=== PATIENT | female | born 2005 | race Caucasian/White ===

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

== ENCOUNTER 2024-04-14 15:23 | Outpatient (CLI) | payer OTHER, SELFPAY ==
[2024-04-14 16:43] LABS: HCG,Quantitative < 2 mIU/ml (0-5.42)
[2024-04-16 08:21] LABS: Progesterone 0.1 ng/mL (.)
== END 2024-04-14 23:59 | disposition home or self-care (01) ==
LOC: LAB 15:25
PROVIDERS: Visit Provider Obstetrics & Gynecology
DX: Z34.90 Encounter for supervision of normal pregnancy, unspecified, unspecified trimester (principal)
CPT/HCPCS: 84144; 84702

== ENCOUNTER 2024-07-01 16:00 | Emergency (ER) | payer SELFPAY ==
[2024-07-01 17:09] VITALS: BP 121/71; PULSE 94; RESP 18; TEMP 36.8; O2SAT 97; BMI 41.8
[2024-07-01 17:13] LABS: UTC Pregnancy Test, Urine Negative (Negative)
--- NOTE | 2024-07-01 17:25 | ED_ITS ---
Discharge Plan Disposition Patient Disposition: Home, Self-Care Condition: Good Referrals Follow up/Referrals: Provider,Referral, [Primary Care Provider] - See instructions Activity Restrictions/Add. Instructions Additional Instructions/Restrictions: Follow up with your Family Doctor or OBGYN if no improvement or any worsening of symptoms Return if needed Straight to ER if any life threatening symptoms Clinical Impressions Clinical Impression: Encounter for test, result negative Print Language Print Language: Telugu Discharge ED Provider: Mirian Griffin [facility] General Stated complaint: check to see if preg Mode of Arrival: Ambulatory Source of Information: Patient Time Seen by Provider: 07/01/24 17:30 Description of Symptoms (Recalled from Triage Doc. by RN): + HOME PREG TEST, WANTS A BLOOD AND URINE TEST HEENT Symptoms (Recalled from RN notes): No Resp Symptoms (Recalled from RN notes): No Skin Symptoms (Recalled from RN notes): No MS Symptoms (Recalled from RN notes): No Functional Status (Recalled from RN notes): WNL History of Present Illness Provider Complaint: Patient states that she has irregular periods and she took a home test and it was positive States that she wanted to get a urine and blood test to see if she may be Related Data Allergies Allergy/AdvReac Type Severity Reaction Status Date / Time No Known Allergies Allergy Verified 09/30/22 13:47 Worker's Comp Is this a Worker's Comp case?: No [facility] Disclaimer: The information contained in this section may have been updated after the patient was seen, as this information can be updated by other users. Social History Smoking Status: Never smoker alcohol intake: never substance use type: denies use current occupational status: student Travel in the last 8 weeks: Inside the [place] household members: family housing: house ROS Obtained: Yes All systems reviewed & no additional complaints except as documented and Yes Systems reviewed as appropriate & no additional complaints except as documented Constitutional Constitutional: Reports system reviewed and no additional complaints, except as documented and Reports as per HPI ENT Ears, Nose, Mouth, and Throat: Reports system reviewed and no additional complaints, except as documented and Reports as per HPI Cardiovascular Cardiovascular: Reports system reviewed and no additional complaints, except as documented and Reports as per HPI Respiratory Respiratory: Reports system reviewed and no additional complaints, except as documented and Reports as per HPI Gastrointestinal Gastrointestingal: Reports system reviewed and no additional complaints, except as documented and as per HPI Genitourinary Female Genitourinary: Reports system reviewed and no additional complaints, except as documented, Reports as per HPI and Reports other Comments: + home test Physical Exam General General appearance: alert and in no apparent distress Eye Eye exam: Present normal appearance, PERRL and EOMI ENT ENT exam: Present normal exam, normal oropharynx, mucous membranes moist and TM's normal bilaterally Respiratory Respiratory exam: Present normal lung sounds bilaterally; Absent respiratory distress or wheezes Cardiovascular Cardiovascular exam: Present regular rate, normal rhythm and normal heart sounds Neurological Exam Neurological exam: Present alert, oriented X3 and normal gait Medical Decision Making Medical Records Screening: Per USPSTF and CDC recommendations, given the prevalence of disease in our region, it is our hospital?s policy to screen for HIV and viral Hepatitis for all patients aged 18 and over and those with ongoing risk factors. Manan Inquiry Pt receiving controlled substance: No Manan was queried for this patient: No Vital Signs: 07/01/24 17:09 Temperature 98.2 F Temperature Source Oral Pulse Rate [Left Radial] 94 H Respiratory Rate 18 Blood Pressure [Left Arm] 121/71 Blood Pressure Mean [Left Arm] 87 02 Sat by Pulse Oximetry 97 Lab Data Lab results reviewed: Yes I reviewed the patient's lab results. Lab Results 07/01/24 17:01: [facility] Negative Orders (Tests/Meds): ORDERS Category Date Time Status HCG Qualitative, Serum Stat Lab 07/01/24 17:01 Ordered
[2024-07-01 18:19] LABS: HCG Qualitative, Serum Negative (Negative)
[2024-07-01 18:24] VITALS: BP 121/71; PULSE 94; RESP 18; TEMP 36.8
== END 2024-07-01 18:28 | disposition home or self-care (01) ==
PROVIDERS: Emergency Provider Nurse Practitioner
DX: Z32.02 Encounter for pregnancy test, result negative (principal); N92.6 Irregular menstruation, unspecified
CPT/HCPCS: 36415; 81025; 84703; 99212; G0381

== ENCOUNTER 2025-03-22 12:00 | Outpatient (CLI) | payer SELFPAY | END 2025-03-22 23:59 | disposition home or self-care (01) | LOC: LAB.DROPOF 03-23 12:36 | PROVIDERS: PCP Student in an Organized Health Care Education/Training Program; Visit Provider Student in an Organized Health Care Education/Training Program | DX: Z32.01 Encounter for pregnancy test, result positive (principal) | CPT/HCPCS: 84702 ==

== ENCOUNTER 2025-03-23 17:24 | Emergency (ER) | payer SELFPAY ==
[2025-03-23 17:59] VITALS: BP 156/100; PULSE 87; RESP 16; TEMP 36.7; O2SAT 100; BMI 36.3
--- NOTE | 2025-03-23 18:02 | ED_ITS ---
<Statement entered by Salina Rodriguez DO - 03/24/25 21:23> I was consulted by the DEYA, and we discussed the complexity of problems being addressed. I approve the treatment and management plan for this patient's care in the emergency department, thus performing a substantial portion of the medical decision making. Salina Rodriguez DO Discharge Plan Disposition Patient Disposition: Home, Self-Care Condition: Good Prescriptions Prescriptions: New cephalexin 500 mg capsule 500 mg PO BID 7 Days Qty: 14 0RF Referrals Follow up/Referrals: Provider,Referral, MD [Primary Care Provider, Medical] - See instructions Activity Restrictions/Add. Instructions Additional Instructions/Restrictions: You should start taking the antibiotics given the bacteria in your urine and you will need to take them for 7 days. You need to either come back here to the emergency department or go to an OB or your primary care doctor to get repeat labs done in 48 hours to make sure that you are blood levels are appropriately uptrending. Return to the emergency department for any acute or worsening symptoms. Clinical Impressions Clinical Impression: Vaginal bleeding during Instructions Patient Instructions: DI for Acute Abdominal Pain Print Language Print Language: Kyrgyz Discharge ED Provider: Salina Rodriguez General Adult HPI <VAISHALI Monroy - Last Filed: 03/23/25 19:06> General Chief complaint: Abdominal Pain Stated complaint: 6-7 weeks with cramping,bleeding Time Seen by Provider: 03/23/25 17:54 Mode of Arrival: Ambulatory Source of Information: Patient Limitations: No Limitations History of Present Illness HPI narrative: 19-year-old G2, unknown gestational age female presents to the emergency department with a less than 24-hour history of vaginal bleeding that she describes as spotting, with 1 soaked pad, she endorses 3 days of abdominal cramping, she is unsure when her last menstrual cycle is, she states she has quite irregular , menstrual cycles, believes last menstrual cycle was possibly in November, she had positive test on March 21, 2025, had a subsequent positive test yesterday at urgent care treatment facility. She denies any fever chills chest pain shortness of breath, no overt abdominal pain as the cramping is a waxing and waning, vomiting diarrhea constipation, denies any other vaginal discharge, denies any dysuria or other urinary symptomatology, patient has no other real relevant past medical history with the exception of mesenteric adenitis, takes no other medications at home, remote history of possible endometriosis for which she never followed up for, she is a current everyday smoker, (vapes), occasional is alcohol, denies any drug use. Initial triage vitals unremarkable. Of note, after patient's positive test yesterday at urgent care treatment facility, she made appointment with [facility] health provider coming up in March. Please note that above description of symptoms, in this electronic medical record under categorization of recalled from ER triage doctor by RN are reflective of an initial nursing assessment, however, is not reflective of my full history and physical exam that was personally taken and clarified. Consequentially, this preceding description of symptoms, which may include the patient's categorized chief complaint in the EMR, do not reflect my personal clinical impression, and the ultimate description of history of present illness and patient stated complaints should be deferred to this section of the note. Unless stated otherwise or congruent with this section of the note, additional signs, symptoms, or incongruence should be interpreted as inaccurate with my clinical impression. Onset (ago): hour(s) Related Data Previous Rx's ?Medication ?Instructions ?Recorded cephalexin 500 mg capsule 500 mg PO BID 7 days #14 cap s 03/23/25 Allergies Allergy/AdvReac Type Severity Reaction Status Date / Time No Known Allergies Allergy Verified 03/22/25 11:26 [facility] <VAISHALI Monroy - Last Filed: 03/23/25 19:06> [facility] Disclaimer: The information contained in this section may have been updated after the patient was seen, as this information can be updated by other users. Medical History (Updated 03/23/25 @ 20:29 by Salina Rodriguez DO) Possible , not confirmed Social History Smoking Status: Current every day smoker alcohol intake: never substance use type: denies use current occupational status: student Travel in the last 8 weeks?: [place] the [place] household members: family housing: house Have you lived/traveled outside US in past 30 days?: No Contact w/someone who lives/traveled outside US past 30 days?: No Exposure to someone with infectious disease in past 14 days?: No Do you have a fever (greater than 100.4 F or 38 C)?: No Have you tested positive for COVID-19?: No Exposed to someone with COVID-19 in past 14 days?: No Do you have a sore throat?: No Do you have a cough?: No Do you have any weakness?: No Do you have any diarrhea?: No Are you experiencing any unusual bleeding?: No Do you have any muscle aches/pain?: No Do you have any abdominal pain?: No Are you experiencing loss of taste or smell?: No Other Medical History Have you received the Flu Vaccine for this season: No Have you received the Pneumonia Vaccine: No <VAISHALI Monroy - Last Filed: 03/23/25 19:06> ROS Obtained: Yes All systems reviewed & no additional complaints except as documented Physical Exam <VAISHALI Monroy - Last Filed: 03/23/25 19:06> General General appearance: alert and in no apparent distress Comment: Somewhat of a flat affect, mildly tearful appearing Head Head exam: atraumatic and normocephalic Eye Eye exam: Present PERRL and EOMI ENT ENT exam: Present mucous membranes moist Neck Neck exam: Present normal inspection Chest Chest inspection: Present normal inspection and symmetric chest wall rise Respiratory Respiratory exam: Present normal lung sounds bilaterally; Absent respiratory distress Cardiovascular Cardiovascular exam: Present regular rate and normal rhythm Abdominal Exam Abdominal exam: Present soft; Absent tenderness, guarding, rebound or rigidity Extremities Exam Extremities exam: Present normal inspection Neurological Exam Neurological exam: Present alert and oriented X3 Psychiatric Psychiatric exam: Present normal affect Skin Skin exam: Present warm and dry Medical Decision Making <VAISHALI Monroy - Last Filed: 03/23/25 19:06> Medical Records Medical records reviewed: Yes I reviewed the patient's medical records. Screening: Per USPSTF and CDC recommendations, given the prevalence of disease in our region, it is our hospital?s policy to screen for HIV and viral Hepatitis for all patients aged 18 and over and those with ongoing risk factors. Manan Inquiry Pt receiving controlled substance: No Manan was queried for this patient: No Vital Signs: 03/23/25 17:59 03/23/25 18:05 03/23/25 20:36 Temperature 98.1 F 98.0 F 98.0 F Temperature Source Oral Oral Oral Pulse Rate 99 H 85 Pulse Rate [Right Radial] 87 Respiratory Rate 16 18 16 Blood Pressure 124/59 L 117/97 H Blood Pressure [Right Arm] 156/100 H Blood Pressure Mean [Right Arm] 118 Blood Pressure Source Automatic Cuff Blood Pressure Source [Right Arm] Automatic Cuff Blood Pressure Position Sitting Supine Blood Pressure Position [Right Arm] Sitting 02 Sat by Pulse Oximetry 100 100 Oxygen Delivery Method Room Air Room Air Room Air Lab Data Lab results reviewed: Yes I reviewed the patient's lab results. Lab Results 03/23/25 17:51: Urine Color Yellow, Urine Appearance Clear, Urine pH 5.5, Ur Specific [place] >= 1.030, Urine Protein 1+ A, Urine Glucose (UA) Negative, Urine Ketones Trace, Urine Blood 3+ A, Urine Nitrate Negative, Urine Bilirubin 1+ A, Urine Urobilinogen 0.2, Ur Leukocyte Esterase Negative, Urine RBC Occasional, Urine WBC 5-10, Ur Squamous Epith Cells 10-20, Amorphous Sediment 2+, Urine Bacteria 2+ 03/23/25 18:50: WBC 6.3, RBC 3.57 L, Hgb 12.3, Hct 35.2 L, MCV 98.6, MCH 34.5 H, MCHC 34.9, RDW 13.0, Plt Count 223, MPV 11.0 H, Neut % (Auto) 65.6, Lymph % (Auto) 25.6, Roberts % (Auto) 7.8, Eos % (Auto) 0.5, Baso % (Auto) 0.3, Neut # (Auto) 4.1, Lymph # (Auto) 1.6, Roberts # (Auto) 0.5, Eos # (Auto) 0.0, Baso # (Auto) 0.0, PT 10.9, INR 0.98, Sodium 135 L, Potassium 3.6, Chloride 108 H, C arbon Dioxide 18 L, Anion Gap 12.6, BUN 7, Creatinine 0.60, Estimated Creat Clear 227, Estimated GFR 127, Est GFR ( Amer) 154, Glucose 90, Calcium 8.6, Total Bilirubin 0.6, AST 23, ALT 13, Alkaline Phosphatase 67, Total Protein 6.7, Albumin 4.1, Globulin 2.6, Albumin/Globulin Ratio 1.6, HCG, Quant 274 H, HCV Ab SVETA w/Rflx PCR Qn Negative, HIV Ag/Ab Combo Qual Negative 03/23/25 18:50 03/23/25 18:50 Orders (Tests/Meds): ORDERS Category Date Time Status Complete Blood Count Auto Diff Stat Lab 03/23/25 18:50 Completed Comprehensive Metabolic Panel Stat Lab 03/23/25 18:50 Completed HCG,Quantitative Stat Lab 03/23/25 18:50 Completed HIV Combo Stat Lab 03/23/25 18:50 Completed Hepatitis C Ab Qual. W/ RFX Stat Lab 03/23/25 18:50 Completed PT INR [Prothrombin Time INR] Stat Lab 03/23/25 18:50 Completed Urinalysis and Microscopic Stat Lab 03/23/25 17:51 Completed Urine Culture Stat Micro 03/23/25 17:51 Received US OB transvaginal Stat Ultrasound 03/23/25 18:03 Completed Medical Decision Narrative: 19-year-old G2, female unknown gestational age presents to the emergency department with vaginal bleeding, differential diagnosis include but not limited to subchorionic hematoma, ectopic , spontaneous , molar , implantation of bleeding, acute UTI among others. I discussed this patient case with attending physician Dr. Rodriguez at shift change, she will be assuming amended the patient's care/workup, disposition is pending laboratory studies and transvaginal ultrasound findings. Will obtain basic laboratory studies, ABO Rh, transvaginal ultrasound, hCG quant, PT/INR, urinalysis. UA is notable for 1+ proteinuria, trace ketonuria, 3+ hematuria, 1+ bilirubin, negative leukocyte Estrace negative nitrites. Of note, I was notified by nursing staff at approximately 6:38 PM that the patient had a syncopal versus near syncopal event while attempting to have IV insertion/blood draw. Will add EKG. I discussed this patient case with attending physician Dr. Rodriguez at shift change, she will be assuming amended the patient's care/workup, disposition is pending laboratory studies and transvaginal ultrasound findings. <Salina Rodriguez, DO - Last Filed: 03/24/25 21:23> Vital Signs: 03/23/25 17:59 03/23/25 18:05 03/23/25 20:36 Temperature 98.1 F 98.0 F 98.0 F Temperature Source Oral Oral Oral Pulse Rate 99 H 85 Pulse Rate [Right Radial] 87 Respiratory Rate 16 18 16 Blood Pressure 124/59 L 117/97 H Blood Pressure [Right Arm] 156/100 H Blood Pressure Mean [Right Arm] 118 Blood Pressure Source Automatic Cuff Blood Pressure Source [Right Arm] Automatic Cuff Blood Pressure Position Sitting Supine Blood Pressure Position [Right Arm] Sitting 02 Sat by Pulse Oximetry 100 100 Oxygen Delivery Method Room Air Room Air Room Air Lab Data Lab Results 03/23/25 17:51: Urine Color Yellow, Urine Appearance Clear, Urine pH 5.5, Ur Specific [place] >= 1.030, Urine Protein 1+ A, Urine Glucose (UA) Negative, Urine Ketones Trace, Urine Blood 3+ A, Urine Nitrate Negative, Urine Bilirubin 1+ A, Urine Urobilinogen 0.2, Ur Leukocyte Esterase Negative, Urine RBC Occasional, Urine WBC 5-10, Ur Squamous Epith Cells 10-20, Amorphous Sediment 2+, Urine Bacteria 2+ 03/23/25 18:50: WBC 6.3, RBC 3.57 L, Hgb 12.3, Hct 35.2 L, MCV 98.6, MCH 34.5 H, MCHC 34.9, RDW 13.0, Plt Count 223, MPV 11.0 H, Neut % (Auto) 65.6, Lymph % (Auto) 25.6, Roberts % (Auto) 7.8, Eos % (Auto) 0.5, Baso % (Auto) 0.3, Neut # (Auto) 4.1, Lymph # (Auto) 1.6, Roberts # (Auto) 0.5, Eos # (Auto) 0.0, Baso # (Auto) 0.0, PT 10.9, INR 0.98, Sodium 135 L, Potassium 3.6, Chloride 108 H, C arbon Dioxide 18 L, Anion Gap 12.6, BUN 7, Creatinine 0.60, Estimated Creat Clear 227, Estimated GFR 127, Est GFR ( Amer) 154, Glucose 90, Calcium 8.6, Total Bilirubin 0.6, AST 23, ALT 13, Alkaline Phosphatase 67, Total Protein 6.7, Albumin 4.1, Globulin 2.6, Albumin/Globulin Ratio 1.6, HCG, Quant 274 H, HCV Ab SVETA w/Rflx PCR Qn Negative, HIV Ag/Ab Combo Qual Negative Orders (Tests/Meds): ORDERS Category Date Time Status Complete Blood Count Auto Diff Stat Lab 03/23/25 18:50 Completed Comprehensive Metabolic Panel Stat Lab 03/23/25 18:50 Completed HCG,Quantitative Stat Lab 03/23/25 18:50 Completed HIV Combo Stat Lab 03/23/25 18:50 Completed Hepatitis C Ab Qual. W/ RFX Stat Lab 03/23/25 18:50 Completed PT INR [Prothrombin Time INR] Stat Lab 03/23/25 18:50 Completed Urinalysis and Microscopic Stat Lab 03/23/25 17:51 Completed Urine Culture Stat Micro 03/23/25 17:51 Received US OB transvaginal Stat Ultrasound 03/23/25 18:03 Completed Medical Decision Narrative: 19-year-old G2, female unknown gestational age presents to the emergency department with vaginal bleeding, differential diagnosis include but not limited to subchorionic hematoma, ectopic , spontaneous , molar , implantation of bleeding, acute UTI among others. I discussed this patient case with attending physician Dr. Rodriguez at shift change, she will be assuming amended the patient's care/workup, disposition is pending laboratory studies and transvaginal ultrasound findings. Will obtain basic laboratory studies, ABO Rh, transvaginal ultrasound, hCG quant, PT/INR, urinalysis. UA is notable for 1+ proteinuria, trace ketonuria, 3+ hematuria, 1+ bilirubin, negative leukocyte Estrace negative nitrites. Of note, I was notified by nursing staff at approximately 6:38 PM that the patient had a syncopal versus near syncopal event while attempting to have IV insertion/blood draw. Will add EKG. I discussed this patient case with attending physician Dr. Rodriguez at shift change, she will be assuming amended the patient's care/workup, disposition is pending laboratory studies and transvaginal ultrasound findings. Salina Rodriguez, I assumed care of the patient at 2200 EKG showed normal sinus rhythm without acute ST or T wave changes concerning for ischemia Patient CBC showed no leukocytosis, hemoglobin was stable. CMP was unremarkable. INR was normal. Beta-hCG 274. Transvaginal ultrasound was performed that showed a cystic structure within the uterus possible early . Patient was sent with Keflex with concern for her UTI. No concern for ectopic at this time. Patient has a follow-up with OB tomorrow for repeat blood work. I recommended that patient get repeat blood work done in 48 hours to make sure that her beta-hCG is appropriately increasing. Patient without any significant bleeding at this time, patient was given bleeding precautions. Patient was otherwise discharged home in stable condition. Critical Care <VAISHALI Monroy - Last Filed: 03/23/25 19:06> Critical Care Time Critical Care Time: No
--- NOTE | 2025-03-23 18:03 | US_ITS ---
PROCEDURE INFORMATION: Exam: US , Transvaginal Exam date and time: 03/23/2025 6:49 PM Age: 19 years old Clinical indication: Lmp or gestational age (in weeks): 4w6d; Other: Bleeding; ; Additional info: R/O ectopic 1st tri vag bleeding TECHNIQUE: Imaging protocol: Real-time transvaginal obstetrical ultrasound of the maternal pelvis with image documentation. Transvaginal imaging was used for better evaluation of the fetus, adnexa, and/or cervix. COMPARISON: CT ABDOMEN PELVIS WO CON 09/30/2022 2:16 PM FINDINGS: Gestation: Possible Intrauterine gestation. BIOMETRY: Gestational age (AUA): 4 w 6 d Estimated due date (AUA): 11/24/2025 Mean sac diameter: 0.38 cm. MATERNAL: Right ovary/adnexa: Right ovary measures 2.91 cm x 1.81 cm x 1.79 cm. Right ovarian volume is 4.94 mL. Left ovary/adnexa: Left ovary measures 2.61 cm x 2.06 cm x 2.95 cm. Left ovarian volume is 8.3 mL. IMPRESSION: 1. Cystic structure within the uterus most likely a very early intrauterine although not confirmed. Correlate with serial beta HCG and short-term follow-up pelvic ultrasound. Too early to visualize pole or yolk sac. 2. Unremarkable sonographic appearance to the adnexa.
[2025-03-23 18:05] VITALS: BP 124/59; PULSE 99; RESP 18; TEMP 36.7; O2SAT 100
[2025-03-23 18:14] LABS: Microscopic, Urine URINE MICROSCOPIC (MICROSCOPIC)
[2025-03-23 18:16] LABS: Color,Urine YELLOW (Yellow); Glucose,Urine (UA) Negative (Negative); Ketones,Urine TRACE (Negative); Leukocyte Esterase,Urine Negative (Negative); PH,Urine 5.5 (5.0-8.5); Protein,Urine 1+ (Negative); Specific Gravity, Urine >= 1.030 (1.005-1.030); Urobilinogen,Urine 0.2 EU/dl (0.2)
[2025-03-23 18:25] LABS: Bilirubin,Urine 1+ (Negative)
--- NOTE | 2025-03-23 18:47 | ECG_ITS ---
APPROVED REPORT Exam: Resting ECG HR:76 bpm ECG Measurements Heart Rate 76 AXES MD 136 P 37 QRSd 90 QRS 46 QT 372 T 10 QTc 403 Conclusion SINUS RHYTHM NONSPECIFIC T-WAVE ABNORMALITY BORDERLINE ECG UNCONFIRMED REPORT Electronically signed by : TAYLA COOLEY, 03/23/2025 23:16:25
[2025-03-23 19:04] LABS: Amorphous Sediment,Urine 2+ /lpf; Bacteria,Urine 2+ /lpf; RBC,Urine Occasional #/hpf (0-3)
[2025-03-23 19:14] LABS: Hematocrit 35.2 % (37.0-47.0); Hemoglobin 12.3 g/dL (12.2-16.2); Immature Granulocytes % 0.2 %; Mean Corpuscular HGB Conc 34.9 g/dL (31.8-35.4); Mean Corpuscular Hemoglobin 34.5 pg (27.0-31.2); Mean Corpuscular Volume 98.6 fl (81-99); Nucleated Red Blood Cells % 0 %; Platelet Count 223 K/mm3 (142-424); Red Blood Count 3.57 M/mm3 (4.20-5.40); Red Cell Distribution Width-SD 46.8 fL; White Blood Count 6.3 K/mm3 (4.5-13.0)
[2025-03-23 19:24] LABS: INR 0.98 (0.9-1.1); Prothrombin Time 10.9 seconds (10.1-12.5)
[2025-03-23 19:43] LABS: Alanine Aminotransferase 13 U/L (12-78); Albumin Level 4.1 g/dl (3.5-5.0); Albumin/Globulin Ratio 1.6 (1.1-1.8); Alkaline Phosphatase 67 U/L (38-126); Anion Gap 12.6 mEq/L (5-15); Aspartate Amino Transferase 23 U/L (14-36); Bilirubin,Total 0.6 mg/dl (0.2-1.3); Blood Urea Nitrogen 7 mg/dl (7-17); Calcium 8.6 mg/dl (8.4-10.2); Carbon Dioxide 18 mmol/L (22.0-30.0); Chloride 108 mmol/L (98-107); Creatinine Clearance Estimated 227 mL/min (50-200); Creatinine,Serum 0.60 mg/dl (0.52-1.04); Estimated Glomerular Filt Rate 127 ml/min (>60); GFR (African American) 154 ML/MIN (>60); Globulin 2.6 g/dL (1.3-3.2); Glucose 90 mg/dl (74-100); Potassium 3.6 mmoL/L (3.5-5.1); Sodium 135 mmol/L (136-145); Total Protein,Serum 6.7 g/dl (6.3-8.2)
[2025-03-23 20:19] LABS: Hepatitis C Ab Qual. W/ RFX NEGATIVE (Negative)
[2025-03-23 20:36] VITALS: BP 117/97; PULSE 85; RESP 16; TEMP 36.7; O2SAT 100
== END 2025-03-23 20:37 | disposition home or self-care (01) ==
PROVIDERS: Physician Assistant; Emergency Provider Student in an Organized Health Care Education/Training Program
DX: O26.891 Other specified pregnancy related conditions, first trimester (principal); R10.84 Generalized abdominal pain; Z3A.12 12 weeks gestation of pregnancy
CPT/HCPCS: 36415; 76817; 80053; 81001; 84702; 85025; 85610; 86803; 87086; 87389; 93005; 99284

== ENCOUNTER 2025-03-24 08:08 | Outpatient (CLI) | payer SELFPAY | END 2025-03-24 23:59 | disposition home or self-care (01) | LOC: LAB 08:10 | PROVIDERS: Visit Provider Obstetrics & Gynecology | DX: N92.6 Irregular menstruation, unspecified (principal); Z34.90 Encounter for supervision of normal pregnancy, unspecified, unspecified trimester | CPT/HCPCS: 36415; 84144; 84702 ==

== ENCOUNTER 2025-03-25 10:35 | Emergency (ER) | payer SELFPAY ==
[2025-03-25 10:47] VITALS: BP 105/73; PULSE 84; RESP 16; TEMP 36.6; O2SAT 99; BMI 36.3
--- NOTE | 2025-03-25 10:58 | US_ITS ---
PROCEDURE INFORMATION: Exam: US , Transvaginal Exam date and time: 03/25/2025 11:06 AM Age: 19 years old Clinical indication: Lmp or gestational age (in weeks): 5weeks; Other: Vaginal bleeding; ; Additional info: 5wk , worsening vaginal bleeding TECHNIQUE: Imaging protocol: Real-time transvaginal obstetrical ultrasound of the maternal pelvis with image documentation. Transvaginal imaging was used for better evaluation of the fetus, adnexa, and/or cervix. COMPARISON: US OB TRANSVAGINAL 03/23/2025 6:49 PM FINDINGS: Gestation: No intrauterine is appreciated. MATERNAL: Uterus: Trilaminar endometrium is noted. Right ovary/adnexa: There is and 11 mm cystic structure in the right adnexa with surrounding increased vascularity. Intraperitoneal space: There is free fluid in the cul-de-sac and adnexal regions. IMPRESSION: No intrauterine is appreciated. Trilaminar endometrium measuring 8 mm. There is a small endometrial cyst measuring 2 mm. 11 mm cystic lesion in the right adnexa with surrounding increased flow. There is free fluid within the adnexa and cul-de-sac. Correlation with patient's beta HCG is recommended to exclude ectopic.
--- NOTE | 2025-03-25 10:59 | ED_ITS ---
Discharge Plan Disposition Patient Disposition: Home, Self-Care Prescriptions Prescriptions: No Action cephalexin 500 mg capsule 500 mg PO BID 7 Days Qty: 14 0RF Referrals Follow up/Referrals: Provider,Referral, MD [Primary Care Provider, Medical] - See instructions Activity Restrictions/Add. Instructions Additional Instructions/Restrictions: Follow-up with the OB office as they schedule you. You will likely continue to have some bleeding over the next few days. If you develop any new or worsening symptoms, such as fever, uncontrolled abdominal pain, or if you become concerned for your health for any reason, return to the emergency department for evaluation. Clinical Impressions Clinical Impression: Miscarriage Print Language Print Language: Sinhala Discharge ED Provider: Clayton Ruby General Adult HPI General Chief complaint: Vaginal Bleeding Stated complaint: 5 weeks /actively bleeding Time Seen by Provider: 03/25/25 10:45 Mode of Arrival: Ambulatory Source of Information: Patient Description of Symptoms (Recalled from ER Triage Doc. by RN): Patient reports being here Sunday for vaginal bleeding after a positive test. States that if she continued to have bleeding that she was instructed to come back for a vaginal ultrasound and recheck of her HCG levels. States that when she got up this morning she had some spotting and then felt a gush and when she checked her underwear it was completely soaked in blood. Denies any clots or pain at this time. History of Present Illness HPI narrative: ,Kvng Martinez is a 19y female with a history of previous miscarriage regular periods who presents to the emergency department for complaints of vaginal bleeding in the setting of being approximately 5 weeks 1 day . Patient states that 4 days ago, she started having vaginal spotting that she thought was implantation bleeding. She states that she was evaluated in the emergency department on the and her beta-hCG's have been uptrending since then. She did have a vaginal ultrasound there that showed a gestational sac but could not see any fetus. She states that she woke up this morning and had a large amount of blood between her legs. She reports some mild abdominal cramping. She was told on the that she needs to come back to the emergency department today for recheck of her lab work and repeat ultrasound. Related Data Previous Rx's ?Medication ?Instructions ?Recorded cephalexin 500 mg capsule 500 mg PO BID 7 days #14 cap s 03/23/25 Allergies Allergy/AdvReac Type Severity Reaction Status Date / Time No Known Allergies Allergy Verified 03/22/25 11:26 [facility] Disclaimer: The information contained in this section may have been updated after the patient was seen, as this information can be updated by other users. Medical History (Updated 03/25/25 @ 14:12 by Clayton Ruby MD) Possible , not confirmed Social History Smoking Status: Current every day smoker alcohol intake: never substance use type: denies use current occupational status: student Travel in the last 8 weeks?: Inside the [place] household members: family housing: house Have you lived/traveled outside US in past 30 days?: No Contact w/someone who lives/traveled outside US past 30 days?: No Exposure to someone with infectious disease in past 14 days?: No Do you have a fever (greater than 100.4 F or 38 C)?: No Have you tested positive for COVID-19?: No Exposed to someone with COVID-19 in past 14 days?: No Do you have a sore throat?: No Do you have a cough?: No Do you have any weakness?: No Do you have any diarrhea?: No Are you experiencing any unusual bleeding?: Yes Do you have any muscle aches/pain?: No Do you have any abdominal pain?: Yes Are you experiencing loss of taste or smell?: No Other Medical History Have you received the Flu Vaccine for this season: No Have you received the Pneumonia Vaccine: No ROS Obtained: Yes Systems reviewed as appropriate & no additional complaints except as documented Physical Exam General General appearance: alert and in no apparent distress Head Head exam: atraumatic Eye Eye exam: Present normal appearance ENT ENT exam: Present normal external ear exam Neck Neck exam: Present full ROM Chest Chest inspection: Present symmetric chest wall rise Respiratory Respiratory exam: Present normal lung sounds bilaterally; Absent respiratory distress Cardiovascular Cardiovascular exam: Present regular rate and normal rhythm Abdominal Exam Abdominal exam: Present soft; Absent tenderness or guarding Extremities Exam Extremities exam: Present normal inspection Back Exam Back exam: Present normal inspection Neurological Exam Neurological exam: Present alert and oriented X3 Psychiatric Psychiatric exam: Present normal affect Skin Skin exam: Present warm and dry Medical Decision Making Medical Records Screening: Per USPSTF and CDC recommendations, given the prevalence of disease in our region, it is our hospital?s policy to screen for HIV and viral Hepatitis for all patients aged 18 and over and those with ongoing risk factors. Manan Inquiry Pt receiving controlled substance: No Vital Signs: 03/25/25 10:47 03/25/25 12:58 Temperature 97.8 F Temperature Source Oral Pulse Rate 78 Pulse Rate [Radial] 84 Respiratory Rate 16 Blood Pressure 128/79 Blood Pressure [Right Arm] 105/73 L Blood Pressure Mean [Right Arm] 83 Blood Pressure Source [Right Arm] Automatic Cuff Blood Pressure Position [Right Arm] Sitting 02 Sat by Pulse Oximetry 99 99 Oxygen Delivery Method Room Air Lab Data Lab Results 03/25/25 11:11: WBC 5.2, RBC 3.62 L, Hgb 12.5, Hct 35.8 L, MCV 98.9, MCH 34.5 H, MCHC 34.9, RDW 13.0, Plt Count 173, MPV 11.2 H, Neut % (Auto) 62.1, Lymph % (Auto) 29.4, [place] % (Auto) 7.1, Eos % (Auto) 0.8, Baso % (Auto) 0.4, Neut # (Auto) 3.2, Lymph # (Auto) 1.5, [place] # (Auto) 0.4, Eos # (Auto) 0.0, Baso # (Auto) 0.0 03/25/25 12:00: PT 11.3, INR 1.02, APTT 21.1 L, Sodium 137, Potassium 4.0, C hloride 110 H, Carbon Dioxide 20 L, Anion Gap 11.0, BUN 8, Creatinine 0.50 L, Estimated Creat Clear 272, Estimated GFR 157, Est GFR ( Amer) 190 D, Glucose 96, Calcium 9.2, Total Bilirubin 0.8, AST 23, ALT 11 L, Alkaline Phosphatase 62, Total Protein 7.1, Albumin 4.2, Globulin 2.9, Albumin/Globulin Ratio 1.4, HCG, Quant 205 H 03/25/25 12:52: Blood Type O Positive, Antibody Screen Negative 03/25/25 11:11 03/25/25 12:00 Orders (Tests/Meds): ORDERS Category Date Time Status Type and Screen Stat BBK 03/25/25 12:52 Completed CBC w/Auto Diff [Complete Blood Count Auto Diff] Stat Lab 03/25/25 11:11 Completed CMP [Comprehensive Metabolic Panel] Stat Lab 03/25/25 12:00 Completed HCG,Quantitative Stat Lab 03/25/25 12:00 Completed PT INR [Prothrombin Time INR] Stat Lab 03/25/25 12:00 Completed PTT [Activated Partial Thrombo Time] Stat Lab 03/25/25 12:00 Completed US OB transvaginal Stat Ultrasound 03/25/25 10:58 Completed Medical Decision Narrative: ,Kvng Martinez is a 19y female with a history of previous miscarriage regular periods who presents to the emergency department for complaints of vaginal bleeding in the setting of being approximately 5 weeks 1 day . Patient states that 4 days ago, she started having vaginal spotting that she thought was implantation bleeding. She states that she was evaluated in the emergency department on the and her beta-hCG's have been uptrending since then. She did have a vaginal ultrasound there that showed a gestational sac but could not see any fetus. She states that she woke up this morning and had a large amount of blood between her legs. She reports some mild abdominal cramping. She was told on the that she needs to come back to the emergency department today for recheck of her lab work and repeat ultrasound. On arrival, patient is hemodynamically stable, in no acute respiratory distress, breathing comfortably on room air. Afebrile. Physical exam, stated above, reveals an overall well- appearing female in no distress. GCS 15. She reports some abdominal discomfort but has no tenderness on my exam. Cardiopulmonary exam is unremarkable. Demential diagnosis includes, but is not limited to: Ruptured ectopic , miscarriage, inevitable , ruptured ovarian cyst, among others. The most morbid conditions were considered and workup was based on these. Workup in the emergency department included: CBC, CMP, PT/INR, APTT, quantitative beta-hCG, transvaginal ultrasound Laboratory workup showed no anemia, no leukocytosis, coagulation studies unremarkable. CMP grossly unremarkable nonactionable. Beta-hCG is trending downward and is 205 today and was 326 yesterday and was 274 the day before. Patient's ultrasound from 03/23/2025 was reviewed by me personally. There is a cystic structure within the uterus that could represent a gestational sac, however unable to determine given very early . Transvaginal ultrasound today shows no intrauterine and only a 2 mm endometrial cyst. There is an 11 mm cyst in the right adnexa with surrounding increased flow and free fluid within the adnexa and cul-de-sac. They recommended correlation with patient's beta-hCG to exclude ectopic. Although patient's beta-hCG is downtrending, I did discuss patient's case with Dr. Jones who felt patient's picture fits more consistently with miscarriage and less likely to be ectopic . She did state that she will come down and evaluate the patient and likely arrange close follow-up for her. I discussed this plan with the patient. Dr. Jones evaluated the patient and felt that she was appropriate for discharge at this time with plan for outpatient follow-up. Patient was agreeable with this plan. Patient was given return precautions. She was then discharged from the emergency department in stable condition. Critical Care Critical Care Time Critical Care Time: No
[2025-03-25 11:20] LABS: Hematocrit 35.8 % (37.0-47.0); Hemoglobin 12.5 g/dL (12.2-16.2); Immature Granulocytes % 0.2 %; Mean Corpuscular HGB Conc 34.9 g/dL (31.8-35.4); Mean Corpuscular Hemoglobin 34.5 pg (27.0-31.2); Mean Corpuscular Volume 98.9 fl (81-99); Nucleated Red Blood Cells % 0 %; Platelet Count 173 K/mm3 (142-424); Red Blood Count 3.62 M/mm3 (4.20-5.40); Red Cell Distribution Width-SD 46.7 fL; White Blood Count 5.2 K/mm3 (4.5-13.0)
[2025-03-25 12:38] LABS: Activated Partial Thrombo Time 21.1 seconds (22.8-30.6); INR 1.02 (0.9-1.1); Prothrombin Time 11.3 seconds (10.1-12.5)
[2025-03-25 12:58] VITALS: BP 128/79; PULSE 78; O2SAT 99
[2025-03-25 13:04] LABS: Chloride 110 mmol/L (98-107)
[2025-03-25 13:05] LABS: Albumin Level 4.2 g/dl (3.5-5.0); Potassium 4.0 mmoL/L (3.5-5.1); Sodium 137 mmol/L (136-145)
[2025-03-25 13:07] LABS: Alanine Aminotransferase 11 U/L (12-78); Anion Gap 11.0 mEq/L (5-15); Aspartate Amino Transferase 23 U/L (14-36); Blood Urea Nitrogen 8 mg/dl (7-17); Carbon Dioxide 20 mmol/L (22.0-30.0); Creatinine Clearance Estimated 272 mL/min (50-200); Creatinine,Serum 0.50 mg/dl (0.52-1.04); Estimated Glomerular Filt Rate 157 ml/min (>60); GFR (African American) 190 ML/MIN (>60)
[2025-03-25 13:08] LABS: Albumin/Globulin Ratio 1.4 (1.1-1.8); Alkaline Phosphatase 62 U/L (38-126); Bilirubin,Total 0.8 mg/dl (0.2-1.3); Calcium 9.2 mg/dl (8.4-10.2); Globulin 2.9 g/dL (1.3-3.2); Glucose 96 mg/dl (74-100); Total Protein,Serum 7.1 g/dl (6.3-8.2)
--- NOTE | 2025-03-25 13:30 | PC.NURSE ---
chao daame on phone with it communications specialist obgyn
--- NOTE | 2025-03-25 13:31 | PC.NURSE ---
Dr. Ruby speaking with OB auto inspection specialist.
--- NOTE | 2025-03-25 14:16 | PC.NURSE ---
Per OB office, Dr. Jones is on her way to speak w/ pt.
--- NOTE | 2025-03-25 14:21 | PC.NURSE ---
dr infante at bedside
[2025-03-25 14:38] VITALS: BP 120/83; PULSE 76; RESP 16; TEMP 36.6; O2SAT 98
== END 2025-03-25 14:39 | disposition home or self-care (01) ==
PROVIDERS: Emergency Provider Student in an Organized Health Care Education/Training Program
DX: O03.9 Complete or unspecified spontaneous abortion without complication (principal); R10.819 Abdominal tenderness, unspecified site
CPT/HCPCS: 76817; 80053; 84702; 85025; 85610; 85730; 86850; 99283; 99284

== ENCOUNTER 2025-04-29 11:34 | Outpatient (CLI) | payer SELFPAY | END 2025-04-29 23:59 | disposition home or self-care (01) | LOC: LAB 11:35 | PROVIDERS: Visit Provider Obstetrics & Gynecology | DX: N91.2 Amenorrhea, unspecified (principal); Z32.01 Encounter for pregnancy test, result positive | CPT/HCPCS: 36415; 84144; 84702 ==

== ENCOUNTER 2025-05-01 14:11 | Outpatient (CLI) | payer SELFPAY | END 2025-05-01 23:59 | disposition home or self-care (01) | LOC: LAB 14:11 | PROVIDERS: Visit Provider Obstetrics & Gynecology | DX: Z34.90 Encounter for supervision of normal pregnancy, unspecified, unspecified trimester (principal); Z3A.00 Weeks of gestation of pregnancy not specified | CPT/HCPCS: 36415; 84702 ==

== ENCOUNTER 2025-05-29 09:49 | Outpatient (CLI) | payer OTHER, SELFPAY ==
[2025-05-29 10:12] LABS: Hematocrit 40.6 % (37.0-47.0); Hemoglobin 13.8 g/dL (12.2-16.2); Immature Granulocytes % 0.1 %; Mean Corpuscular HGB Conc 34.0 g/dL (31.8-35.4); Mean Corpuscular Hemoglobin 32.8 pg (27.0-31.2); Mean Corpuscular Volume 96.4 fl (81-99); Nucleated Red Blood Cells % 0 %; Platelet Count 252 K/mm3 (142-424); Red Blood Count 4.21 M/mm3 (4.20-5.40); Red Cell Distribution Width-SD 43.0 fL; White Blood Count 7.8 K/mm3 (4.8-10.8)
[2025-05-29 13:39] LABS: RPR W/RFX Titers Nonreactive (Nonreactive)
[2025-05-29 14:46] LABS: Hepatitis C Ab Qual. W/ RFX NEGATIVE (Negative)
[2025-05-30 08:25] LABS: Hepatitis B Surface Antigen Negative (Negative); Rubella Antibodies, IgG 6.47 index (Immune >0.99)
== END 2025-05-29 23:59 | disposition home or self-care (01) ==
PROVIDERS: Visit Provider Obstetrics & Gynecology
DX: Z34.81 Encounter for supervision of other normal pregnancy, first trimester (principal)
CPT/HCPCS: 36415; 85025; 86592; 86762; 86787; 86803; 86850; 87340; 87389

== ENCOUNTER 2025-07-05 21:21 | Emergency (ER) | payer OTHER, SELFPAY ==
[2025-07-05 21:33] VITALS: BP 126/80; PULSE 97; RESP 18; TEMP 37.2; O2SAT 99; BMI 37.9
--- NOTE | 2025-07-05 22:03 | [facility].EDGENADL ---
Discharge Plan Disposition Patient Disposition: Home, Self-Care Prescriptions Prescriptions: New ondansetron 4 mg tablet,disintegrating 4 mg PO Q6H PRN (Reason: nausea and vomiting) 4 Days Qty: 20 0RF No Action Classic 28 mg iron- 800 mcg tablet 1 tab PO DAILY promethazine 12.5 mg tablet 12.5 mg PO Q6H Qty: 30 3RF progesterone micronized [Prometrium] 200 mg capsule 200 mg vaginal QHS 30 Days Qty: 30 2RF aspirin [Adult Low Dose Aspirin] 81 mg tablet,delayed release (DR/EC) 81 mg PO DAILY Qty: 60 4RF Referrals Follow up/Referrals: Provider,Referral, MD [Primary Care Provider, Medical] - See instructions Activity Restrictions/Add. Instructions Additional Instructions/Restrictions: You have been seen and evaluated the emergency department. Please follow-up with your [employer], we recommend you call tomorrow. You may take Zofran as needed for nausea. Do not combine this medication with promethazine. Continue vitamins at home. You may take Tylenol as needed for abdominal pain. Clinical Impressions Clinical Impression: Abdominal pain Qualifiers: Abdominal location: lower abdomen, unspecified Qualified Code(s): R10.30 - Lower abdominal pain, unspecified Qualifiers: Weeks of gestation: 13 weeks Qualified Code(s): Z3A.13 - 13 weeks gestation of Instructions Patient Instructions: DI for Acute Abdominal Pain Print Language Print Language: Armenian Discharge ED Provider: Amparo Chau Adult HPI General Chief complaint: Abdominal Pain Stated complaint: 13 weeks AP, cramping and vomiting Time Seen by Provider: 07/05/25 21:59 Mode of Arrival: Ambulatory Source of Information: Patient Description of Symptoms (Recalled from ER Triage Doc. by RN): PT presents with severe abdominal cramping and N/V as well as a headache. Pt is 13.5 weeks History of Present Illness HPI narrative: 20-year-old female currently 13 weeks with history of 1 prior miscarriage who presents emergency department with abdominal pain, cramping, nausea, and vomiting. Denies any recent fever, chest pain, shortness of breath, vaginal bleeding, dysuria, or diarrhea. She has tried previously prescribed nausea medication at home without relief. She is currently established with an [employer] and receives care. Currently taking vitamins. Next OB appointment is a few days before [place]. Related Data Home Medications ?Medication ?Instructions ?Recorded ?Confirmed vits no.126-ferrous fum 1 tab PO DAILY 05/20/25 06/23/25 28 mg iron-folic acid 800 mcg tablet (Classic ) Previous Rx's ?Medication ?Instructions ?Recorded progesterone micronized 200 mg 200 mg vaginal QHS 30 days #30 caps 04/30/25 capsule (Prometrium) promethazine 12.5 mg tablet 12.5 mg PO Q6H #30 tabs 05/20/25 aspirin 81 mg tablet,delayed 81 mg PO DAILY #60 tabs 06/28/25 release (Adult Low Dose Aspirin) ondansetron 4 mg disintegrating 4 mg PO Q6H PRN nausea and 07/05/25 tablet vomiting 4 days #20 tabs Allergies Allergy/AdvReac Type Severity Reaction Status Date / Time No Known Allergies Allergy Verified 06/23/25 10:54 [facility] Disclaimer: The information contained in this section may have been updated after the patient was seen, as this information can be updated by other users. Medical History Encounter for supervision of other normal , first trimester Strep throat Possible , not confirmed Surgical History No history of previous surgery Social History Smoking Status: Former smoker alcohol intake: never substance use type: denies use current occupational status: student Travel in the last 8 weeks?: Inside the [place] household members: family housing: house Have you lived/traveled outside US in past 30 days?: No Contact w/someone who lives/traveled outside US past 30 days?: No Exposure to someone with infectious disease in past 14 days?: No Do you have a fever (greater than 100.4 F or 38 C)?: No Have you tested positive for COVID-19?: No Exposed to someone with COVID-19 in past 14 days?: No Do you have a sore throat?: No Do you have a cough?: No Do you have any weakness?: No Do you have any diarrhea?: No Are you experiencing any unusual bleeding?: Yes Do you have any muscle aches/pain?: No Do you have any abdominal pain?: No Are you experiencing loss of taste or smell?: No Other Medical History Have you received the Flu Vaccine for this season: No Have you received the Pneumonia Vaccine: No ROS Obtained: Yes All systems reviewed & no additional complaints except as documented Physical Exam General General appearance: alert and in no apparent distress Head Head exam: atraumatic Eye Eye exam: Present normal appearance, PERRL and EOMI ENT ENT exam: Present mucous membranes moist Neck Neck exam: Present normal inspection and full ROM; Absent tenderness Chest Chest inspection: Present symmetric chest wall rise; Absent tenderness Respiratory Respiratory exam: Absent respiratory distress, wheezes or accessory muscle use Cardiovascular Cardiovascular exam: Present regular rate and normal rhythm Abdominal Exam Abdominal exam: Present soft and tenderness (Very mild suprapubic discomfort/tenderness); Absent distention or guarding Extremities Exam Extremities exam: Present full ROM; Absent tenderness Neurological Exam Neurological exam: Present alert and oriented X3 Psychiatric Psychiatric exam: Present normal affect Skin Skin exam: Present warm and dry Medical Decision Making Medical Records Screening: Per USPSTF and CDC recommendations, given the prevalence of disease in our region, it is our hospital?s policy to screen for HIV and viral Hepatitis for all patients aged 18 and over and those with ongoing risk factors. Manan Inquiry Pt receiving controlled substance: No Manan was queried for this patient: No Vital Signs: 07/05/25 21:33 07/05/25 23:12 Temperature 99.0 F 98.9 F Temperature Source Oral Pulse Rate 86 Pulse Rate [Right] 97 H Respiratory Rate 18 18 Blood Pressure 126/80 Blood Pressure [Right Arm] 126/80 Blood Pressure Mean [Right Arm] 95 Blood Pressure Source [Right Arm] Automatic Cuff Blood Pressure Position [Right Arm] Sitting 02 Sat by Pulse Oximetry 99 Oxygen Delivery Method Room Air Room Air Lab Data Lab Results 07/05/25 21:45: Urine Color Yellow, Urine Appearance Clear, Urine pH 6.0, Ur Specific [place] 1.025, Urine Protein Negative, Urine Glucose (UA) Negative, Urine Ketones 3+, Urine Blood Negative, Urine Nitrate Negative, Urine Bilirubin Negative, Urine Urobilinogen 1.0, Ur Leukocyte Esterase Trace, Urine RBC None, Urine WBC Occasional, Ur Squamous Epith Cells 5-10, Calcium Oxalate Crystal Trace, Urine Bacteria 2+ 07/05/25 22:03: WBC 4.4 L, RBC 3.57 L, Hgb 12.0 L, Hct 33.3 L, MCV 93.3, MCH 33.6 H, MCHC 36.0 H, RDW 12.5, Plt Count 143, MPV 11.0 H, Neut % (Auto) 78.5, Lymph % (Auto) 14.2, [place] % (Auto) 6.1, Eos % (Auto) 0.5, Baso % (Auto) 0.2, Neut # (Auto) 3.5, Lymph # (Auto) 0.6 L, [place] # (Auto) 0.3, Eos # (Auto) 0.0, Baso # (Auto) 0.0, Sodium 136, Potassium 3.8, Chloride 106, Carbon Dioxide 18 L, Anion Gap 15.8 H, BUN 5 L, Creatinine 0.40 L, Estimated Creat Clear 352 H, Estimated GFR 201, Est GFR ( Amer) 244, Glucose 84, Calcium 8.5, Total Bilirubin 0.9, AST 26, ALT 16, Alkaline Phosphatase 36 L, Total Protein 7.1, Albumin 3.9, Globulin 3.2, Albumin/Globulin Ratio 1.2 07/05/25 22:03 07/05/25 22:03 Orders (Tests/Meds): ED MEDICATIONS Discontinued Medications Generic Name Dose Route Start Last Admin Trade Name Devendraq PRN Reason Stop Dose Admin Acetaminophen 1,000 mg 07/05/25 22:03 07/05/25 22:20 Acetaminophen 1,000mg/100ml Vial IV 07/05/25 22:04 1,000 mg ONCE ONE Administration Ondansetron HCl 4 mg 07/05/25 22:03 07/05/25 22:20 Ondansetron 4mg/2ml Vial IV 07/05/25 22:04 4 mg ONCE ONE Administration ORDERS Category Date Time Status POCUS Point of Care (ER Only) Stat Exams 07/05/25 21:59 Completed CBC w/Auto Diff [Complete Blood Count Auto Diff] Stat Lab 07/05/25 22:03 Completed CMP [Comprehensive Metabolic Panel] Stat Lab 07/05/25 22:03 Results HCG,Quantitative Stat Lab 07/05/25 22:03 Results UA [Urinalysis and Microscopic] Stat Lab 07/05/25 21:45 Completed Urine Culture Stat Micro 07/05/25 21:45 Received Medical Decision Narrative: In summary, this is a 20y/o female presenting the emergency department for lower abdominal pain, nausea, and vomiting. She is currently 13 weeks and is established with [employer]. Differential diagnosis includes but is not limited to: First trimester hyperemesis gravidarum, SERGIO, electrolyte abnormality, UTI On my initial assessment, the patient is hemodynamically stable in no acute distress. Physical exam is notable for suprapubic discomfort, however the patient by no means has an acute abdomen. She overall appears well-hydrated. Bedside [id number] ultrasound reveals an intrauterine . There is significant motion of the fetus, I attempted multiple times to capture a heart rate, however was unsuccessful. There is a brisk heartbeat visually present. No obvious pelvic free fluid. Patient received Tylenol and Zofran for treatment. Labs personally interpreted which demonstrate low white blood cell count 4.4. There is concurrent mild anemia with hemoglobin of 12.0. Platelet count within normal limits. CMP reveals no severe electrolyte abnormalities. No SERGIO. Anion gap is 15.8, only mildly elevated. LFTs grossly normal. Quantitative hCG is appropriate for dates. UA shows 5-10 squamous epithelial cells with occasional white blood cells, however negative nitrite and trace leukocyte esterase. In the absence of dysuria, urinary frequency, or flank pain, no antibiotics are indicated. I discussed 1 L of IV fluids with the patient, however on reassessment after Tylenol and Zofran she feels much better. She does not feel that she needs IV fluids at this time. She is stable for discharge home. I encouraged her to call her [employer] tomorrow to inform them that she has been evaluated in the emergency department. I encouraged her to return should she have worsening symptoms. She was given a prescription for Zofran as she feels that this works better for her than promethazine. Limited OB ultrasound Indication: Pelvic pain Identified structures: Uterus, pouch of [place] Findings: Uterus: Definitive IUP FHR: Unable to obtain due to significant motion [place] sac: Free fluid is absent Impression: -IUP: Present - heart rate: Unable to obtain due to significant motion -Ectopic : Absent within the limits of this exam -Free fluid: Absent within the limits of this exam Images were saved to permanent archive The study was technically adequate CPT Transabdominal: 93947-05 This study was performed by Amparo Chau DO, and I personally interpreted all images/videos. Based on my clinical judgement, these images were adequate and did not necessitate further imaging. Critical Care Critical Care Time Critical Care Time: No
[2025-07-05 22:08] LABS: Microscopic, Urine URINE MICROSCOPIC (MICROSCOPIC)
[2025-07-05 22:20] LABS: Bilirubin,Urine Negative (Negative); Color,Urine YELLOW (Yellow); Glucose,Urine (UA) Negative (Negative); Ketones,Urine 3+ (Negative); Leukocyte Esterase,Urine TRACE (Negative); PH,Urine 6.0 (5.0-8.5); Protein,Urine Negative (Negative); Specific Gravity, Urine 1.025 (1.005-1.030); Urobilinogen,Urine 1.0 EU/dl (0.2)
[2025-07-05 22:20] LABS: Chloride 106 mmol/L (98-107)
[2025-07-05] MEDS: ONDANSETRON 4MG/2ML VIAL 4 MG IV (22:20)
[2025-07-05] MEDS: ACETAMINOPHEN 1,000MG/100ML VIAL 1000 MG IV (22:20)
[2025-07-05 22:21] LABS: Albumin Level 3.9 g/dl (3.5-5.0); Potassium 3.8 mmoL/L (3.5-5.1); Sodium 136 mmol/L (136-145)
[2025-07-05 22:23] LABS: Blood Urea Nitrogen 5 mg/dl (7-17); Creatinine Clearance Estimated 352 mL/min (50-200); Creatinine,Serum 0.40 mg/dl (0.52-1.04); Estimated Glomerular Filt Rate 201 ml/min (>60); GFR (African American) 244 ML/MIN (>60)
[2025-07-05 22:24] LABS: Alanine Aminotransferase 16 U/L (12-78); Albumin/Globulin Ratio 1.2 (1.1-1.8); Alkaline Phosphatase 36 U/L (38-126); Anion Gap 15.8 mEq/L (5-15); Aspartate Amino Transferase 26 U/L (14-36); Bilirubin,Total 0.9 mg/dl (0.2-1.3); Calcium 8.5 mg/dl (8.4-10.2); Carbon Dioxide 18 mmol/L (22.0-30.0); Globulin 3.2 g/dL (1.3-3.2); Glucose 84 mg/dl (74-100); Total Protein,Serum 7.1 g/dl (6.3-8.2)
[2025-07-05 22:27] LABS: Bacteria,Urine 2+ /lpf; Calcium Oxalate Crystals,Urine Trace /lpf; WBC,Urine Occasional #/hpf (0-3)
[2025-07-05 22:33] LABS: Hematocrit 33.3 % (37.0-47.0); Hemoglobin 12.0 g/dL (12.2-16.2); Immature Granulocytes % 0.5 %; Mean Corpuscular HGB Conc 36.0 g/dL (31.8-35.4); Mean Corpuscular Hemoglobin 33.6 pg (27.0-31.2); Mean Corpuscular Volume 93.3 fl (81-99); Nucleated Red Blood Cells % 0 %; Platelet Count 143 K/mm3 (142-424); Red Blood Count 3.57 M/mm3 (4.20-5.40); Red Cell Distribution Width-SD 42.9 fL; White Blood Count 4.4 K/mm3 (4.8-10.8)
[2025-07-05 23:12] VITALS: BP 126/80; PULSE 86; RESP 18; TEMP 37.2; O2SAT 98
== END 2025-07-05 23:21 | disposition home or self-care (01) ==
PROVIDERS: Emergency Provider Student in an Organized Health Care Education/Training Program
DX: O26.891 Other specified pregnancy related conditions, first trimester (principal); R10.24 Suprapubic pain; R11.2 Nausea with vomiting, unspecified; Z3A.13 13 weeks gestation of pregnancy
CPT/HCPCS: 80053; 81001; 84702; 85025; 87086; 96374; 96375; 99284; J0131; J2405